=== PATIENT | male | born 1965 | race Caucasian/White ===

== ENCOUNTER 2017-11-29 08:59 | Emergency (ER) | payer OTHER ==
[~2017-11-29] VITALS: Ht 170.2 cm; Wt 114.8 kg
[2017-11-29 09:04] VITALS: BP 136/84
--- NOTE | 2017-11-29 09:13 | NUR ---
staple removal kit at bedside
--- NOTE | 2017-11-29 10:03 | NUR ---
PT LASCERATION READY FOR STAPLE REMOVAL. COPIOUS AMOUNTS OF SEROUSANGUINOUS DRAINAGE PRESENT WITH MILD ODOR AND SOME GREEN COLORED CRUST. AREA RED, EDEMA, DEPTH UNKNOWN, WELL APPROXIMATED. AREA IRRIGATED WITH NS, DRAINED WITH LIGHT MANUAL PRESSURE, X17 ALISHA REMOVED. AREA EXAMINED BY MD. CONTINUE TO MONITOR.
[2017-11-29 10:07] VITALS: BP 136/84
--- NOTE | 2017-11-29 10:07 | NUR ---
Patient discharged with v/s stable. Pt states pain diminished after drainage and cleansing completed. Written and verbal after care instructions given and explained. Patient alert, oriented and verbalized understanding of instructions. Ambulatory with steady gait. All questions addressed prior to discharge. ID band removed. Patient advised to follow up with PMD. Rx of KEFLEX given. Patient educated on indication of medication including possible reaction and side effects. Opportunity to ask questions provided and answered.
== END 2017-11-29 10:07 | disposition home or self-care (01) ==
LOC: MED 08:59
DX: T81.4XXA Infection following a procedure, initial encounter (principal); E11.9 Type 2 diabetes mellitus without complications; I10 Essential (primary) hypertension
CPT/HCPCS: 82948; 99283